=== PATIENT | male | born 1955 | race Caucasian/White ===

== ENCOUNTER → 2021-01-01 01:56 | Outpatient (CLI) | payer OTHER, SELFPAY ==
[2021-01-02 14:53] LABS: SARS-CoV-2 RNA PCR Negative
== END ==
PROVIDERS: PCP Family Medicine; Visit Provider Internal Medicine Gastroenterology
DX: Z01.812 Encounter for preprocedural laboratory examination (principal); Z20.822 Contact with and (suspected) exposure to COVID-19
CPT/HCPCS: C9803; U0003; U0005

== ENCOUNTER 2021-01-05 00:45 | Day surgery (SDC) | payer OTHER, SELFPAY ==
[2020-12-24 13:54] VITALS: BMI 25.0
[2021-01-05 08:04] VITALS: BP 151/83; PULSE 83; RESP 18; TEMP 36.4; O2SAT 100; BMI 26.9
[2021-01-05] MEDS: LACTATED RINGERS 1,000 ML 150 ML IV CONT (08:13)
--- NOTE | 2021-01-05 08:33 | WPDANESEPPF ---
Anes - Initial Pre Proc Eval Procedure: Operation Date: 01/05/21 09:45 Proposed Procedures p Screening Colonoscopy - Trevor Benton MD Date/Time: 01/05/21 08:33 Surgeon: Trevor Benton MD Pre Op Diagnosis: neoplasm screening, hx of colon polyps Patient Data Age: 65 Gender: M Height: 1.85 m Weight: 92.6 kg Last Vital Signs Temp 36.4 C L 01/05/21 08:04 Pulse 83 01/05/21 08:04 Resp 18 01/05/21 08:04 BP 151/83 H 01/05/21 08:04 Pulse Ox 100 01/05/21 08:04 Allergies Allergy/AdvReac Type Severity Reaction Status Date / Time No Known Allergies Allergy Unknown Verified 01/05/21 08:02 Home Medications Medication Instructions Recorded Confirmed Type clonazepam 1 mg tablet 1 mg PO DAILY 10/11/20 12/24/20 History Patient hx anesthesia problems: none Family hx anesthesia problems: none [facility] Past Medical History Medical History (Updated 10/11/20 @ 09:45 by Jacoby Hayward MD) Anxiety Cerumen impaction Colon polyp, hyperplastic Plantar fasciitis Screening for lipid disorders Umbilical hernia Vision changes Surgical History Surgical History (Updated 10/11/20 @ 09:01 by Prema Faye) History of hernia repair History of tonsillectomy and adenoidectomy Family History Family History (Updated 10/11/20 @ 09:02 by Prema Faye) Other Advanced cirrhosis of liver Lung cancer Social History Social History (Updated 10/11/20 @ 09:02 by Prema Faye) Smoking status: Never smoker Alcohol intake: current Drinks per week: 3 Living arrangements: with family Gender identity (if verbalized by the patient): Male Spiritual care concerns: No Anes - Eval Final PreProcedure Day of Procedure 01/05/21 08:33 Patient weight: overweight Heart: regular rate and rhythm Lungs: clear to auscultation and normal air movement Airway: Mallampati scale class II Neurological: alert and oriented Last oral intake: >/= 8 hours ASA classification: II Emergent: no Anesthetic plan: proceed Anesthesia type and monitoring: general GIVS and standard monitoring Informed Consent: The patient's anesthetic plan and its attendant risks and benefits were discussed with the patient/family/POA. Questions were solicited and answers provided to the satisfaction of the patient/family/POA.
--- NOTE | 2021-01-05 08:51 | WPDGICN ---
Assessment and Plan Assessment and plan (1) Colon polyp, hyperplastic: Qualifiers: Colon location: unspecified part of colon Qualified Code(s): K63.5 - Polyp of colon Code(s): K63.5 - Polyp of colon Status: Acute Assessment and Plan: Patient presents today for screening colonoscopy. He does have a history of a benign colon polyp in the past. Further recommendations will be given after endoscopy is accomplished. High-fiber diet is advised. GI Consult Note Consult date/time: 01/05/21 08:51 HPI: Chris Garvey is a 65 year old male Presents for screening colonoscopy. Patient states his current weight appetite bowel movements are normal. He denies abdominal pain. He did have a previous colon polyp many years ago. His more recent exams were unremarkable. Reports his current weight appetite bowel movements normally denies any blood in his stools. Family history is noncontributory. Review of Systems Review of Systems: All systems reviewed & are unremarkable except as noted in HPI and below PMFSH Past Medical History Medical History (Updated 10/11/20 @ 09:45 by Jacoby Hayward MD) Anxiety Cerumen impaction Colon polyp, hyperplastic Plantar fasciitis Screening for lipid disorders Umbilical hernia Vision changes Surgical History Surgical History (Updated 10/11/20 @ 09:01 by Prema Faye) History of hernia repair History of tonsillectomy and adenoidectomy Family History Family History (Updated 10/11/20 @ 09:02 by Prema Faye) Other Advanced cirrhosis of liver Lung cancer Social History Social History (Updated 10/11/20 @ 09:02 by Prema Faye) Smoking status: Never smoker Alcohol intake: current Drinks per week: 3 Living arrangements: with family Gender identity (if verbalized by the patient): Male Spiritual care concerns: No Meds Home Medications and Allergies Home Medications Medication Instructions Recorded Confirmed Type clonazepam 1 mg tablet 1 mg PO DAILY 10/11/20 12/24/20 History Allergies Allergy/AdvReac Type Severity Reaction Status Date / Time No Known Allergies Allergy Unknown Verified 01/05/21 08:02 Vital Signs Vital Signs - 24 hr 01/05/21 08:04 Temperature 97.5 F L Pulse Rate 83 Respiratory Rate 18 Blood Pressure 151/83 H Pulse Oximetry 100 Exam Narrative: Exam Narrative: Physical exam reveals patient be alert. Vital signs stable. HEENT exam is unremarkable. Lungs are clear to auscultation and percussion. Heart is without murmur or extra sounds. Abdominal exam bowel sounds are present soft nontender with no organomegaly. Digital external rectal exam is normal.
[2021-01-05 09:49] VITALS: BP 105/71; PULSE 80; RESP 15; O2SAT 94
[2021-01-05 09:59] VITALS: BP 115/76; PULSE 75; RESP 17; O2SAT 97
== END 2021-01-05 10:24 | disposition home or self-care (01) ==
PROVIDERS: PCP Family Medicine; Visit Provider Internal Medicine Gastroenterology
PROC: 0DJD8ZZ Inspection of Lower Intestinal Tract, Via Natural or Artificial Opening Endoscopic (ICD-10-PCS; CPT 45378; principal; 2021-01-05 09:45)
DX: Z12.11 Encounter for screening for malignant neoplasm of colon (principal); D12.3 Benign neoplasm of transverse colon; K63.5 Polyp of colon; K64.8 Other hemorrhoids; F41.9 Anxiety disorder, unspecified
CPT/HCPCS: 45385; 88305; C9803; J2704; J7120; U0003; U0005

== ENCOUNTER 2022-02-24 09:10 | Emergency (ER) | payer OTHER, SELFPAY ==
--- NOTE | 2022-02-24 09:12 | ED.URI ---
HPI - URI/Sore Throat General Chief Complaint: Upper Respiratory Infection Stated Complaint: Congestion Time Seen by Provider: 02/24/22 09:35 Source: patient and RN notes reviewed Mode of arrival: ambulatory Limitations: no limitations History of Present Illness HPI Narrative: 66-year-old male presents with concern for 3-day history of cough, postnasal drainage, nasal congestion. He reports his girlfriend had similar symptoms and was seen by her doctor and had several negative COVID test. He denies shortness of breath. Reports he had chills today. MD elicited complaint: cough Related Data Allergies Allergy/AdvReac Type Severity Reaction Status Date / Time No Known Allergies Allergy Unknown Verified 02/07/22 13:41 Review of Systems Review of Systems: CONSTITUTIONAL: Reports malaise, chills. Denies sweats, or fever. EYES: Denies visual changes, redness, or discharge. ENT: Reports rhinorrhea, congestion. Denies sinus pain, otalgia and sore throat. CARDIOVASCULAR: Denies chest pain, palpitations, or edema. RESPIRATORY: Reports cough. Denies dyspnea. GASTROINTESTINAL: Denies abdominal pain, nausea, vomiting, diarrhea SKIN: Denies rash or itching. MUSCULOSKELETAL: Denies myalgia. NEUROLOGIC: Denies headache. All systems reviewed & are unremarkable except as noted in HPI and below PMFSH Past Medical History Medical History (Updated 02/24/22 @ 09:45 by Suzette Alejandro NP) Anxiety BMI 25.0-25.9,adult BMI 26.0-26.9,adult Cerumen impaction Colon polyp, hyperplastic Erectile dysfunction Penile pain Plantar fasciitis Screening for lipid disorders Umbilical hernia Vision changes Surgical History Surgical History History of hernia repair History of tonsillectomy and adenoidectomy Family History Family History Other Advanced cirrhosis of liver Lung cancer Social History Social History Smoking status: Never smoker Alcohol intake: current Drinks per week: 3 Substance use: never Gender identity (if verbalized by the patient): Male Spiritual care concerns: No Comments At time of signature, agree with nursing past medical, surgical, social and family history. There is no relevant family history pertinent to the presenting complaint Exam Narrative: GENERAL: Well-appearing, well-nourished, and in no acute distress. HEAD: Normocephalic EYES: PERRLA, conjunctivae clear ENT: Nares clear, turbinates edematous and erythematous, clear discharge. Mucous membranes moist. TM pearly maay with sharp light reflex bilaterally; no tragal tenderness. Oropharynx not erythematous without lesions. Tonsils not enlarged and without exudate, no drooling, no hoarseness, no trismus, uvula midline. NECK: Supple. No lymphadenopathy CHEST: Clear to auscultation, breath sounds equal. No wheezing, rhonchi, rales, or stridor. No respiratory distress, speaks in full sentences. HEART: Regular rate and rhythm. No murmur heard. SKIN: Warm, dry, no rash. NEURO: Alert and oriented x3. PSYCH: Normal mood and affect Course Course Emergency Course: Offered patient COVID and flu testing, he declined Patient is aware of diagnosis, understands and agrees to treatment plan. Anticipatory guidance given. Patient agrees to follow-up as directed and is aware of reasons to seek care at the emergency department. Portions of this record may have been created with voice recognition software Level of Care: Express Care Visit Vital Signs Vital signs: Reviewed. MDM - URI/Sore Throat MDM Narrative Medical decision making narrative: Differential diagnosis considered: Sharp virus, strep pharyngitis, allergic rhinitis, upper respiratory tract infection, sinusitis, rhinosinusitis, nasopharyngitis. viral pharyngitis, otitis media, otitis externa, pneumonia, bronchitis, viral cough syndrome
[2022-02-24 09:20] VITALS: BP 140/78; PULSE 103; RESP 16; TEMP 37.9; O2SAT 97
== END 2022-02-24 09:52 | disposition home or self-care (01) ==
PROVIDERS: Emergency Provider Nurse Practitioner; PCP Family Medicine
DX: J06.9 Acute upper respiratory infection, unspecified (principal); R05.9 Cough, unspecified
CPT/HCPCS: 99213; G0463